=== PATIENT | male | born 1985 | race Caucasian/White ===

== ENCOUNTER 2018-07-26 12:37 | Emergency (ER) | payer OTHER ==
[2018-07-26] MEDS ORDERED: NS 0.9% 1000 ML** 1,000 ML IV ONE (12:47)
[2018-07-26] MEDS ORDERED: Morphine 4 MG/ML VIAL (1 ml) 4 MG/ML VIAL IV ONE (12:47)
[2018-07-26] MEDS ORDERED: Tetan/Diph/Pertus SYR(Tdap)* 0.5 ML SYR(BOOSTRIX) use SYR IM ONE (12:48)
[2018-07-26] MEDS ORDERED: ceFAZolin 1 GM ADVAN(*) 1 GM in NS 0.9% 50 ML* 50 ML IVPB ONE (12:49)
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
[2018-07-26 13:44] LABS: ABS Basophils 0 10^3/ul (0-0.2); ABS Eosinophils 0 10^3/ul (0-0.6); ABS Lymphocytes 1.2 10^3/ul (1.0-4.8); ABS Monocytes 0.6 10^3/ul (0-0.8); ABS Neutrophils 9.2 10^3/ul (1.5-7.7); ABS Nucleated RBC 0 10^3/ul; Eosinophil % 0.4 %; Hematocrit 44 % (36-46); Lymphocyte % 10.7 %; Mean Corpuscular HGB Conc 34 g/dL (31-36); Mean Corpuscular Hemoglobin 30 pg (27-31); Mean Corpuscular Volume 88 fL (80-94); Mean Platelet Volume 8.9 fL (7.4-10.4); Nucleated Red Blood Cells % 0; Platelet Count 150 10^3/uL (150-450); Red Blood Count 5.05 10^6 /uL (4.18-5.48); Red Cell Distribution Width 14 % (10.5-15); White Blood Count 11.1 10^3/uL (3.5-10.8)
[2018-07-26 14:00] LABS: Albumin 4.4 g/dL (3.2-5.2); Albumin/Globulin Ratio 1.8 (1-3); BUN/Creatinine Ratio 9.7 (8-20); Calcium 8.8 mg/dL (8.6-10.3); EGFR Non-African American 82.7 (>60); Globulin 2.5 g/dL (2-4); Potassium 3.9 mmol/L (3.5-5.0); Total Bilirubin 0.3 mg/dL (0.2-1.0); Total Protein 6.9 g/dL (6.4-8.9)
[2018-07-26] MEDS ORDERED: Bacitracin OINTMENT* 0.5% 0.5 oz TUBE ONE (14:16)
[2018-07-26] MEDS ORDERED: Bacitracin OINTMENT* 0.5% 0.5 oz TUBE TOPICAL ONE (14:17)
[2018-07-26 16:01] VITALS: BP 132/83
== END 2018-07-26 15:25 | disposition home or self-care (01) ==
LOC: ED 12:37
DX: S51.812A Laceration without foreign body of left forearm, initial encounter (principal); S61.412A Laceration without foreign body of left hand, initial encounter; J70.5 Respiratory conditions due to smoke inhalation; S61.411A Laceration without foreign body of right hand, initial encounter; W25.XXXA Contact with sharp glass, initial encounter; Y92.9 Unspecified place or not applicable; T22.20XA Burn of second degree of shoulder and upper limb, except wrist and hand, unspecified site, initial encounter; X08.8XXA Exposure to other specified smoke, fire and flames, initial encounter; F17.210 Nicotine dependence, cigarettes, uncomplicated
CPT/HCPCS: 12004; 36415; 71046; 80053; 82375; 82600; 85025; 90715; 99283; A9270-GY; J0690; J2270

== ENCOUNTER 2019-05-25 22:10 | Emergency (ER) | payer OTHER ==
[2019-05-25 22:50] LABS: INR 1.08 (0.82-1.09)
[2019-05-25 23:00] LABS: Albumin 4.5 g/dL (3.2-5.2); Albumin/Globulin Ratio 1.9 (1-3); BUN/Creatinine Ratio 8.7 (8-20); EGFR Non-African American 58.6 (>60); Globulin 2.4 g/dL (2-4); Potassium 4.2 mmol/L (3.5-5.0); Total Bilirubin 0.3 mg/dL (0.2-1.0); Total Protein 6.9 g/dL (6.4-8.9)
[2019-05-25 23:02] LABS: ABS Basophils 0.1 10^3/ul (0-0.2); ABS Eosinophils 0.1 10^3/ul (0-0.6); ABS Lymphocytes 2.5 10^3/ul (1.0-4.8); ABS Monocytes 0.6 10^3/ul (0-0.8); ABS Neutrophils 4.3 10^3/ul (1.5-7.7); Eosinophil % 1.9 %; Hematocrit 43 % (42-52); Hemoglobin 14.7 g/dL (14.0-18.0); Lymphocyte % 32.9 %; Mean Corpuscular HGB Conc 34 g/dL (31-36); Mean Corpuscular Hemoglobin 30 pg (27-31); Mean Corpuscular Volume 89 fL (80-94); Mean Platelet Volume 9.1 fL (7.4-10.4); Platelet Count 170 10^3/uL (150-450); Red Blood Count 4.81 10^6 /uL (4.18-5.48); Red Cell Distribution Width 14 % (10-15); White Blood Count 7.6 10^3/uL (3.5-10.8)
--- NOTE | 2019-05-26 00:33 | ED ---
HPI Chest Pain - HPI Summary HPI Summary: 34 year old male presents to the ED with a chief complaint of chest pain localized in the center of his chest starting today. Patient reports chronic chest discomfort for months but this pain is more intense and stabbing. Pain was a 6/10 at worst, but is now a 2/10. Denies fever, shortness of breath, nausea, and abdominal pain. Patient smokes tobacco. He does not drink alcohol or do recreational drugs. No family history of heart problems. Hx of heart murmur. - History of Current Complaint Chief Complaint: EDChestPainROMI Time Seen by Provider: 05/26/19 00:17 Hx Obtained From: Patient Onset/Duration: Started Weeks Ago, Still Present, Worse Since - Today Timing: Constant, Lasting Hours Initial Severity: Moderate Current Severity: Mild Pain Intensity: 3 Pain Scale Used: 0-10 Numeric Chest Pain Location: Mid Sternal Chest Pain Radiates: No Character: Sharp/Stabbing Aggravating Factor(s): Nothing Alleviating Factor(s): Nothing Associated Signs and Symptoms: Positive: Chest Pain - Allergy/Home Medications Allergies/Adverse Reactions: Allergies Allergy/AdvReac Type Severity Reaction Status Date / Time morphine Allergy Anxiety Verified 05/25/19 22:23 Home Medications: Home Medications buPROPion TAB* [Wellbutrin TAB*] 150 mg PO BID 05/25/19 [History Confirmed 05/25] PMH/Surg Hx/FS Hx/Imm Hx Endocrine/Hematology History: Denies: Hx Diabetes Cardiovascular History: Reports: Other Cardiovascular Problems/Disorders - murmur Infectious Disease History: No Infectious Disease History: Denies: Traveled Outside the [place] in Last 30 Days - Family History Known Family History: Negative: Cardiac Disease, Hypertension, Diabetes - Social History Alcohol Use: Occasionally Hx Substance Use: No Substance Use Type: Reports: None Hx Tobacco Use: Yes Smoking Status (MU): Heavy Every Day Tobacco Smoker Type: Cigarettes Amount Used/How Often: 1 pack daily Review of Systems - ROS Summary Review of Systems Summary: Home Medications Medication Instructions Recorded Confirmed Type buPROPion TAB* [Wellbutrin TAB*] 150 mg PO BID 05/25/19 05/25/19 History Negative: Fever Positive: Chest Pain Negative: Shortness Of Breath Negative: Abdominal Pain, Nausea Negative: Headache All Other Systems Reviewed And Are Negative: Yes Physical Exam - Summary Physical Exam Summary: General: Thin male. No acute distress. Appears older than stated age. HEENT: Normocephalic, Atraumatic. Eyes: Conjuctiva normal, PERRL. Ears: TMs within normal limits. Nares: (-) discharge, (-) erythema. Oropharynx: Clear, mucous membranes moist, (-) exudates. Neck: Soft, FROM, (-) lymphadenopathy, (-) thyromegaly, (-) JVD. Cardiovascular: Normal sinus rhythm, (-) murmur. Lungs: Clear to auscultation bilaterally (-) wheezes, (-) rales, (-) rhonchi. Abdomen: Soft, non-tender, non-distended, (-) organomegaly, normal bowel sounds. Back: (-) CVA tenderness Extremities: No edema. Skin: Warm, dry, (-) rash. Neuro: Alert and oriented x3, no focal deficits. Psychiatric: Mood normal, affect normal. Triage Information Reviewed: Yes Vital Signs On Initial Exam: Initial Vitals Temp Pulse Resp BP Pulse Ox 98 F 85 16 131/81 100 05/25/19 22:19 05/25/19 22:19 05/25/19 22:19 05/25/19 22:19 05/25/19 22:19 Vital Signs Reviewed: Yes Procedures - Sedation Patient Received Moderate/Deep Sedation with Procedure: No Diagnostics - Vital Signs Vital Signs Temp Pulse Resp BP Pulse Ox 05/25/19 22:19 98 F 85 16 131/81 100 - Laboratory Lab Results: Lab Results 05/25/19 05/25/19 05/25/19 Range/Units 22:28 22:28 22:28 WBC 7.6 (3.5-10.8) 10^3/uL RBC 4.81 (4.18-5.48) 10^6 /uL Hgb 14.7 (14.0-18.0) g/dL Hct 43 (42-52) % MCV 89 (80-94) fL MCH 30 (27-31) pg MCHC 34 (31-36) g/dL RDW 14 (10-15) % Plt Count 170 (150-450) 10^3/uL MPV 9.1 (7.4-10.4) fL Neut % (Auto) 56.6 % Lymph % (Auto) 32.9 % [place] % (Auto) 7.9 % Eos % (Auto) 1.9 % Baso % (Auto) 0.7 % Absolute Neuts (auto) 4.3 (1.5-7.7) 10^3/ul Absolute Lymphs (auto) 2.5 (1.0-4.8) 10^3/ul Absolute Monos (auto) 0.6 (0-0.8) 10^3/ul Absolute Eos (auto) 0.1 (0-0.6) 10^3/ul Absolute Basos (auto) 0.1 (0-0.2) 10^3/ul Absolute Nucleated RBC 0.0 10^3/ul Nucleated RBC % 0.0 INR (Anticoag Therapy) 1.08 (0.82-1.09) Sodium 138 (135-145) mmol/L Potassium 4.2 (3.5-5.0) mmol/L Chloride 105 (101-111) mmol/L Carbon Dioxide 27 (22-32) mmol/L Anion Gap 6 (2-11) mmol/L BUN 12 (6-24) mg/dL Creatinine 1.38 H (0.67-1.17) mg/dL Est GFR ( Amer) 71.0 (>60) Est GFR (Non-Af Amer) 58.6 (>60) BUN/Creatinine Ratio 8.7 (8-20) Glucose 102 H (70-100) mg/dL Calcium 9.0 (8.6-10.3) mg/dL Total Bilirubin 0.30 (0.2-1.0) mg/dL AST 12 L (13-39) U/L ALT 7 (7-52) U/L Alkaline Phosphatase 57 (34-104) U/L Troponin I 0.00 (<0.03) ng/mL Total Protein 6.9 (6.4-8.9) g/dL Albumin 4.5 (3.2-5.2) g/dL Globulin 2.4 (2-4) g/dL Albumin/Globulin Ratio 1.9 (1-3) Result Diagrams: 05/25/19 22:28 05/25/19 22:28 Lab Statement: Any lab studies that have been ordered have been reviewed, and results considered in the medical decision making process. - Radiology CXR Radiology Interpretation Completed By: ED Physician Summary of Radiographic Findings: No infiltrate. No pleural effusion. Pending official read. Dr. Lugo has reviewed and interpreted this scan. - EKG 2214 Cardiac Rate: Bradycardia - 56 bpm EKG Rhythm: Sinus Rhythm ST Segment: Normal Ectopy: None Summary of EKG Findings: EKG at 2217 reveals sinus bradycardia with rate of 56 BPM, no acute changes, no ischemic changes. This EKG was reviewed and interpreted by Dr. Lugo. Chest Pain Course/Dx - Course Course Of Treatment: 34-year-old male presents from home by private vehicle with chest pain. Describes midsternal chest pain. Worse today but has been going on for months now. He denies any shortness of breath. No change in his cough. No fevers or chills. He does admit to smoking. No apparent distress upon arrival. No significant findings on physical exam. Workup demonstrates normal chest x-ray, EKG, normal serial troponins. Patient discharged home with noncardiac chest pain. Advised follow-up with PCP. Follow-up sooner for any worsening symptoms. - Diagnoses Provider Diagnoses: Chest pain Discharge ED - Sign-Out/Discharge Documenting (check all that apply): Patient Departure - discharge home - Discharge Plan Condition: Stable Disposition: HOME Patient Education Materials: Chest Pain (ED) Referrals: Marco Antonio Bonilla MD [Primary Care Provider] - Additional Instructions: Follow up with your primary care provider in 2-3 days. Return to the ED if you experience new or worsened symptoms. - Billing Disposition and Condition Condition: STABLE Disposition: Home - Attestation Statements Document Initiated by Lis: Yes Documenting Scribe: Golden Almeida Provider For Whom Lis is Documenting (Include Credential): Shama Lugo MD Scribe Attestation: Golden Piedra, scribed for Shama Lugo MD on 05/26/19 at 0617. Scribe Documentation Reviewed: Yes Provider Attestation: The documentation as recorded by the Golden white accurately reflects the service I personally performed and the decisions made by , Shama Lugo MD Status of Scribe Document: Viewed
[2019-05-26 02:54] VITALS: BP 122/85
== END 2019-05-26 02:45 | disposition home or self-care (01) ==
LOC: ED 22:10
DX: R07.9 Chest pain, unspecified (principal); F17.210 Nicotine dependence, cigarettes, uncomplicated; Z79.899 Other long term (current) drug therapy; R94.31 Abnormal electrocardiogram [ECG] [EKG]
CPT/HCPCS: 36415; 71045; 80053; 84484; 85025; 85610; 93005; 99284

== ENCOUNTER 2019-07-18 11:37 | Emergency (ER) | payer OTHER ==
[2019-07-18 12:40] VITALS: BP 118/69
--- NOTE | 2019-07-18 12:47 | UC ---
FLU HPI - HPI Summary HPI Summary: /o chills, body aches, non-productive cough that started last night. Significant other diagnosed with flu Friday. - History of Current Complaint Chief Complaint: UCRespiratory Stated Complaint: COUGH CHILLS ACHY Time Seen by Provider: 07/18/19 12:26 Hx Obtained From: Patient Onset/Duration: Sudden Onset, Lasting Hours Severity Currently: Moderate Severity Initially: Moderate Pain Intensity: 4 Associated Signs & Symptoms: Positive: Fever, Cough, Sore Throat Related Hx: Possible Flu/Infectious Exposure - Allergy/Home Medications Allergies/Adverse Reactions: Allergies Allergy/AdvReac Type Severity Reaction Status Date / Time morphine Allergy Anxiety Verified 07/18/19 12:33 Home Medications: Home Medications buPROPion TAB* [Wellbutrin TAB*] 150 mg PO BID 05/25/19 [History Confirmed 07/17] Albuterol HFA INHALER* [Ventolin HFA Inhaler*] 2 puff INH Q4H PRN #1 mdi [Rx] Cyclobenzaprine TAB* [Flexeril 10 MG TAB*] 10 mg PO DAILY PRN 07/18/19 [History Confirmed 07/18/19] PMH/Surg Hx/FS Hx/Imm Hx Previously Healthy: Yes - Surgical History Surgical History: None - Family History Known Family History: Negative: Cardiac Disease, Hypertension, Diabetes - Social History Alcohol Use: Occasionally Substance Use Type: None Smoking Status (MU): Light Every Day Tobacco Smoker Type: Cigarettes Amount Used/How Often: 5 cigarettes daily Review of Systems All Other Systems Reviewed And Are Negative: Yes Constitutional: Positive: Fever, Fatigue ENT: Positive: Sore Throat Respiratory: Positive: Cough Musculoskeletal: Positive: Myalgia Neurological/Mental Status: Positive: Headache Is Patient Immunocompromised?: No Physical Exam Triage Information Reviewed: Yes Appearance: Well-Nourished, Ill-Appearing, Pain Distress Vital Signs: Initial Vital Signs Temp 98.7 F 07/18/19 12:34 Pulse 83 07/18/19 12:34 Resp 16 07/18/19 12:34 BP 118/69 07/18/19 12:34 Pulse Ox 98 07/18/19 12:34 Vital Signs Reviewed: Yes Eye Exam: Normal Dental Exam: Normal Neck exam: Normal Respiratory Exam: Normal Respiratory: Positive: Chest non-tender, Lungs clear, Normal breath sounds Cardiovascular Exam: Normal Cardiovascular: Positive: RRR, No Murmur, Pulses Normal Abdominal Exam: Normal Bowel Sounds: Positive: Present Musculoskeletal Exam: Normal Neurological Exam: Normal Psychological Exam: Normal Skin Exam: Normal Flu Course/Dx - Course Course Of Treatment: hx obtained, exam performed ,meds reviewed, rapid flu obtianed - Differential Dx/Diagnosis Differential Diagnosis/HQI/PQRI: Influenza Provider Diagnosis: Influenza A Discharge ED - Sign-Out/Discharge Documenting (check all that apply): Patient Departure All imaging exams completed and their final reports reviewed: No Studies - Discharge Plan Condition: Stable Disposition: HOME Patient Education Materials: Influenza (ED) Forms: *Work Release Referrals: Marco Antonio Bonilla MD [Primary Care Provider] - Additional Instructions: 1. Get plenty of rest and fluids 2. stay home to minimize exposure 3. Wash hands frequently 4. Ibuprofen and Tylenol for pain and fever. 5. Follow up if symptoms become unmanageable 6. use the albuterol as needed - Billing Disposition and Condition Condition: STABLE Disposition: Home
[2019-07-18 12:53] LABS: Influenza A Molecular POSITIVE (Negative)
== END 2019-07-18 13:02 | disposition home or self-care (01) ==
LOC: UCCORT 11:37
DX: J10.1 Influenza due to other identified influenza virus with other respiratory manifestations (principal); F17.210 Nicotine dependence, cigarettes, uncomplicated; Z88.5 Allergy status to narcotic agent
CPT/HCPCS: 99212; G0463

== ENCOUNTER 2019-07-23 19:44 | Emergency (ER) | payer OTHER ==
[2019-07-23 19:52] VITALS: BP 111/71
--- NOTE | 2019-07-23 20:15 | UC ---
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 " -flu sx started 07/14/19 PM. continues to feel ill with flu like sx. didnt take temp yesterday but felt really hot and feverish -pain is dull and constant. has not gone away all day. pain escalates to significant pain w/ deep breath. anterior and right chest pain more so. -no trauma. no ST/ear pain -no rash. no swollen glands. + diarrhea x 2 days. no n/v. -here w/ GF Meghan - History of Current Complaint Chief Complaint: UCChestPain Stated Complaint: CHEST PAIN, SOB Time Seen by Provider: 07/23/19 19:56 Pain Intensity: 6 - Allergy/Home Medications Allergies/Adverse Reactions: Allergies Allergy/AdvReac Type Severity Reaction Status Date / Time morphine Allergy Anxiety Verified 07/23/19 19:52 Home Medications: Home Medications buPROPion TAB* [Wellbutrin TAB*] 150 mg PO BID 05/25/19 [History Confirmed 07/22] Albuterol HFA INHALER* [Ventolin HFA Inhaler*] 2 puff INH Q4H PRN #1 mdi [Rx Confirmed 07/23/19] Cyclobenzaprine TAB* [Flexeril 10 MG TAB*] 10 mg PO DAILY PRN 07/18/19 [History Confirmed 07/23/19] PMH/Surg Hx/FS Hx/Imm Hx Previously Healthy: Yes - Surgical History Surgical History: None - Family History Known Family History: Negative: Cardiac Disease, Hypertension, Diabetes - Social History Alcohol Use: Occasionally Substance Use Type: None Smoking Status (MU): Light Every Day Tobacco Smoker Type: Cigarettes Amount Used/How Often: 5 cigarettes daily Review of Systems All Other Systems Reviewed And Are Negative: Yes Constitutional: Positive: Fever, Chills - feverish, hot yesterday Eyes: Positive: Negative. Negative: Drainage, Eye Redness, Photophobia ENT: Positive: Negative. Negative: Sore Throat, Ear Ache, Nasal Discharge Respiratory: Positive: Cough. Negative: Shortness Of Breath Cardiovascular: Positive: Chest Pain. Negative: Palpitations Gastrointestinal: Positive: Diarrhea. Negative: Abdominal Pain, Vomiting, Nausea Genitourinary: Positive: Negative. Negative: Dysuria Motor: Positive: Negative Neurovascular: Positive: Negative Musculoskeletal: Positive: Negative Neurological/Mental Status: Positive: Negative Psychological: Positive: Negative Is Patient Immunocompromised?: No Physical Exam Triage Information Reviewed: Yes Appearance: Well-Appearing, No Pain Distress, Ill-Appearing Vital Signs: Initial Vital Signs Temp 99.1 F 07/23/19 19:47 Pulse 82 07/23/19 19:47 Resp 16 07/23/19 19:47 BP 111/71 07/23/19 19:47 Pulse Ox 100 07/23/19 19:47 Vital Signs Reviewed: Yes Eye Exam: Normal Eyes: Positive: Conjunctiva Clear. Negative: Discharge ENT Exam: Normal ENT: Positive: Pharyngeal erythema - no exudate, TMs normal, Uvula midline. Negative: TM bulging, TM dull, TM red, Sinus tenderness Neck exam: Normal Neck: Positive: Supple, Nontender, No Lymphadenopathy Respiratory Exam: Normal Respiratory: Positive: Decreased breath sounds - mild throughout. no specific areas. Negative: Crackles, Rhonchi, Stridor, Wheezing - Assessment/Plan Course Of Treatment: Offocial CXR VRAD read is nml. I suspcted b/l pneumonias possibly. EKG: NSR w/ LVH by volatge criteria. no [id number] T 3 pattern -vitals are normnal - not tachy or tachypenic but has moderate discomfort, worse with deep breath. Potential dx could be pleurisy, hwover may need CT chest to further eval for pneumonia vs PE and cardia enzymens. he and Meghan are agreeable. prefer pvt car. agree to go. -discussed w/ Nelda Lin NP - reviewed case, reports and she accpets pt. - Differential Diagnoses - Chest Pain Differential Diagnosis/HQI/PQRI: Chest Wall, Pulmonary Edema, Pulmonary Embolism - Clinical Impression Provider Diagnosis: Chest pain Discharge ED - Sign-Out/Discharge Documenting (check all that apply): Patient Departure All imaging exams completed and their final reports reviewed: Yes - Discharge Plan Condition: Good Disposition: TRANS HIGHER LVL OF CARE FAC Referrals: Marco Antonio Bonilla MD [Primary Care Provider] - Additional Instructions: Please go directly to the [place] [facility]. Do not stop anywhere else on your way. I have spoken with one of the nurse practitioners ther adn they are awaiting you. - Billing Disposition and Condition Condition: GOOD Disposition: Trans Higher Lvl of Care Fac
== END 2019-07-23 21:23 | disposition short-term general hospital (02) ==
LOC: UCCORT 19:44
DX: R07.9 Chest pain, unspecified (principal); R05 Cough; R19.7 Diarrhea, unspecified; F17.210 Nicotine dependence, cigarettes, uncomplicated; Z88.5 Allergy status to narcotic agent
CPT/HCPCS: 71046; 93005; 99212; G0463